=== PATIENT | male | born 1995 | race Caucasian/White ===

== ENCOUNTER 2018-02-03 12:46 | Inpatient (IN) | payer OTHER ==
[~2018-02-03] VITALS: Ht 185.4 cm; Wt 115.2 kg
[2018-02-03] VITALS (11 sets, daily range): BP systolic 98–155; BP diastolic 53–94
--- NOTE | ~2018-02-03 | H ---
[address] [address] HISTORY AND PHYSICAL Name: VLADISLAV BROWNING Room: [address]#: [id number] Admission: 02/03/18 Attend Phys: Quinn Elder MD Discharge: 02/04/18 Date of : [birth year] Report #: [id number] THIS REPORT FOR: //name// For History and Physical please refer to the electronic consultation note in the patient's medical record. By: 0913Medical Records Staff ALESHIA /BOB
[~2018-02-03 12:46] MED LIST: ACCUNEB SO1.25 MG/1 IH; AZITHROMYCIN 2250 MG PO; CIPRO500 MG PO; FLAGYL500 MG PO; IBUPROFEN 800800 M1 PO; PENICILLIN; PROAIR HFA8.5 GM IH; VENTOLIN HFA 1818 GM INH; VENTOLIN17 GM INH
[2018-02-03 13:17] LABS: ABSOLUTE EOSINOPHILS 0.1 thou/uL (0.0-0.7); ABSOLUTE LYMPHOCYTES 1.6 thou/uL (0.8-5.3); ABSOLUTE MONOCYTES 1.4 thou/uL (0.0-1.2); ABSOLUTE NEUTROPHILS 6.6 thou/uL (1.6-8.1); BASOPHILS 0.3 %; EOSINOPHILS 0.7 %; HEMATOCRIT 42.4 % (42.0-52.0); HEMOGLOBIN 14.5 gm/dL (14.0-18.0); LYMPHOCYTES 16.2 %; MCH 30.1 pg (26.0-34.0); MCHC 34.2 g/dL (28.0-37.0); MCV 87.8 fL (80.0-100.0); MONOCYTES 14.8 %; NUCLEATED RBCS 0 /100WBC; PLATELET COUNT* 237 thou/uL (150-400); RBC 4.82 mil/uL (4.50-6.00); RDW-CV 12.9 % (10.5-14.5); WBC 9.8 thou/uL (4.0-11.0)
[2018-02-03 13:24] LABS: CALCIUM 8.8 mg/dL (8.5-10.1)
[2018-02-03 13:27] LABS: POTASSIUM 2.9 mmol/L (3.5-5.1)
[2018-02-03 13:31] LABS: ALBUMIN 3.8 g/dL (3.4-5.0); TOTAL BILIRUBIN 0.4 mg/dL (<0.1-1.0); TOTAL PROTEIN 7.3 g/dL (6.4-8.2)
[2018-02-03 13:51] LABS: TROPONIN-I LEVEL 9.1 ng/mL (<0.06)
--- NOTE | 2018-02-03 13:54 | NUR ---
LAB CONTACTED FOR RE-DRAW FOR TROPONIN LEVEL PER DR. SAUCEDO'S ORDERS.
--- NOTE | 2018-02-03 13:54 | NUR ---
LAB CONTACTED FOR RE-DRAW
--- NOTE | 2018-02-03 14:03 | EKG ---
[place] [address] ELECTROCARDIOGRAM REPORT Name: VLADISLAV BROWNING Room: [facility]#: [id number] Admission: 02/03/18 Attend Phys: Discharge: Date of : [birth year] Report #: [id number] THIS REPORT FOR: //name// [facility] ED Test Date: 2018-02-03 Test Time: 12:51:27 Pat Name: VLADISLAV BROWNING Department: Room: Gender: M Sale Professional Digital Marketing: Chelle ALCOCER : 1995 Requested By: Dorys Stuart Order Number: [id number] : Atul Morrow Measurements Intervals [place] Rate: 90 P: 11 RI: 124 QRS: 23 QRSD: 97 T: 16 QT: 360 QTc: 441 Interpretive Statements Sinus rhythm Possible lateral infarct, old No previous ECG available for comparison Electronically Signed On 02-03-2018 14:03:26 CDT by Atul Morrow [email or web address] <ELECTRONICALLY SIGNED> By: Atul Morrow MD, [facility] 02/03/18 1403 1251 1251 Atul Morrow MD, FACC /EPI
--- NOTE | 2018-02-03 17:02 | 2DMMODE ---
[place] [address] 2 D/M-MODE ECHOCARDIOGRAM Name: VLADISLAV BROWNING Room: 170-3 ADM IN [place]#: [id number] Admission: 02/03/18 Attend Phys: Quinn Elder, Discharge: Date of : [birth year] Date of Service: 02/03/181701 Report #: [id number] THIS REPORT FOR: //name// APPROVED REPORT Study performed: 02/03/2018 14:41:47 EXAM: Comprehensive 2D, Doppler, and color-flow Echocardiogram Patient Location: In-Patient Room #: er Status: routine BSA: 2.37 HR: 90 bpm BP: 120/82 mmHg Rhythm: NSR Other Information Study Quality: Good Indications Elevated Troponin Chest Pain 2D Dimensions IVSd: 13.00 (7-11mm) LVOT Diam: 22.90 (18-24mm) LVDd: 50.24 mm PWd: 11.63 (7-11mm) Ascending Ao: 25.95 (22-36mm) LVDs: 34.33 (25-40mm) Aortic Root: 31.87 mm Volumes Left Atrial Volume (Systole) LA ESV Index: 24.20 mL/m2 Aortic Valve AoV Peak Madi.: 1.21 m/s AO Peak Gr.: 5.86 mmHg LVOT Max P.43 mmHg AO Mean Gr.: 3.37 mmHg LVOT Mean P.08 mmHg LVOT Max V: 1.05 m/s AO V2 VTI: 23.34 cm LVOT Mean V: 0.65 m/s KEVIN (VTI): 3.71 cm2 LVOT V1 VTI: 21.01 cm Mitral Valve E/A Ratio: 1.37 MV Decel. Time: 174.04 [place] [address] 2 D/M-MODE ECHOCARDIOGRAM Name: VLADISLAV BROWNING Room: [place] [address] ADM IN .R.#: [id number] Admission: 02/03/18 Attend Phys: Quinn Elder, Discharge: Date of : [birth year] Date of Service: 02/03/181701 Report #: [id number] MV E Max Madi.: 0.62 m/s MV PHT: 50.47 ms MVA (PHT): 4.36 cm2 TDI E/Lateral E': 3.10 E/Medial E': 3.10 Medial E' Madi.: 0.20 m/s Lateral E' Madi.: 0.20 m/s Pulmonary Valve PV Peak Madi.: 0.80 m/s PV Peak Gr.: 2.56 mmHg Tricuspid Valve RAP Estimate: 5.00 mmHg TR Peak Gr.: 16.76 mmHg RVSP: 22.00 mmHg PA Pressure: 22.00 mmHg Left Ventricle The left ventricle is normal size. There is normal LV segmental wall motion. There is normal left ventricular wall thickness. Left ventricular systolic function is normal. The left ventricular ejection fraction is within the normal range. LVEF is 50-55%. The left ventricular diastolic function is normal. Right Ventricle The right ventricle is normal size. The right ventricular systolic function is normal. Atria The left atrium size is normal. The right atrium size is normal. Aortic Valve The aortic valve is normal in structure. No aortic regurgitation is present. There is no aortic valvular stenosis. Mitral Valve The mitral valve is normal in structure. Trace mitral regurgitation. No evidence of mitral valve stenosis. Tricuspid Valve The tricuspid valve is normal in structure. Mild tricuspid regurgitation. No pulmonary hypertension. Pulmonic Valve The pulmonary valve is normal in structure. [place] [address] 2 D/M-MODE ECHOCARDIOGRAM Name: VLADISLAV BROWNING Room: [address] IN [facility]#: [id number] Admission: 02/03/18 Attend Phys: Quinn Elder, Discharge: Date of : [birth year] Date of Service: 02/03/18 1702 Report #: [id number] valvular regurgitation. Great Vessels The aortic root is normal in size. IVC is normal in size and collapses >50% with inspiration. Pericardium There is no pericardial effusion. <Conclusion> The left ventricle is normal size. There is normal left ventricular wall thickness. Left ventricular systolic function is normal. The left ventricular ejection fraction is within the normal range. LVEF is 50-55%. The left ventricular diastolic function is normal. The right ventricle is normal size. The left atrium size is normal. The aortic valve is normal in structure. The mitral valve is normal in structure. The tricuspid valve is normal in structure. IVC is normal in size and collapses >50% with inspiration. There is no pericardial effusion. There is normal LV segmental wall motion. <ELECTRONICALLY SIGNED> By: Atul Morrow MD, FACC 02/03/181701 01 01 Atul Morrow MD, FACC /INF
--- NOTE | 2018-02-04 03:39 | NUR ---
ASSUMED PT CARE AT 1930. NURSING ASSESSMENT COMPLETED AT START OF SHIFT. ASSISTANT MANAGER RETAIL IN PLACE, TRACING SINUS RHYTHM. HOURLY ROUNDING COMPLETED, CALL LIGHT WITHIN REACH. VOICED NO CONCERNS THIS SHIFT.
[2018-02-04 04:00] VITALS: BP 106/72
[2018-02-04 05:15] LABS: CALCIUM 8.7 mg/dL (8.5-10.1); CREATININE 0.8 mg/dL (0.6-1.3)
[2018-02-04 05:18] LABS: POTASSIUM 3.9 mmol/L (3.5-5.1)
[2018-02-04 08:10] VITALS: BP 115/72
--- NOTE | 2018-02-04 10:29 | NUR ---
RECEIVED REPORT FROM CEFERINO AND ASSUMED CARE OF PT @ 6849.PT IS A/O X4,VSS,TRACING SR ON THE MONITOR,LUNG SOUNDS ARE CLEAR.LAST BM WAS 02/02/18.IV PATENT AND SALINE LOCKED.PT IS CALM AND COOPERATIVE WITH NO C/O PAIN AT TIME OF ASSESSMENT.PT LEFT RESTING IN BED WITH CALL LIGHT AND FALL PRECAUTIONS IN PLACE. WILL CONTINUE TO MONITOR.
[2018-02-04 12:07] VITALS: BP 115/70
[2018-02-04] MEDS ORDERED: IBUPROFEN 800800 M1 PO (13:59)
[2018-02-04] MEDS ORDERED: COLCHICINE0.6 MG PO (13:59)
[2018-02-04] MEDS ORDERED: NORCO 10-325 T1 EACH PO (14:13)
[2018-02-04] MEDS ORDERED: NORCO 5-325 TA1 EACH PO (14:17)
[2018-02-04 14:25] VITALS: BP 115/70
--- NOTE | 2018-02-04 14:58 | NUR ---
PT OK FOR DISCHARGE.PAPERWORK COMPLETED AND GIVEN TO THE PT.SCRIPTS GIVEN WITH EDUCATION.IV REMOVED.HEART MONITOR REMOVED AND RETURNED TO THE NURSING STATION.ALL PERSONAL BELONGINGS PACKED AND TAKEN WITH THE PT.PT WHEELED OUT BY NURSING STAFF TO PERSONAL VEHICLE.EDUCATION GIVEN ON CARE AND RESTRICTIONS OF RIGHT RADIAL CATH SITE.PT COMMUNICATES UNDERSTANDING.
--- NOTE | 2018-02-04 17:56 | EKG ---
[place] [address] ELECTROCARDIOGRAM REPORT Name: KAMAR BROWNINGTiffanie Harris Room: [address] DIS IN M.R.#: [id number] Admission: 02/03/18 Attend Phys: Quinn Elder MD Discharge: 02/04/18 Date of : [birth year] Report #: [id number] THIS REPORT FOR: //name// [facility] ED Test Date: 2018-02-03 Test Time: 14:28:51 Pat Name: VLADISLAV BROWNING Department: Room: [address] Gender: M Repatcher: : 1995 Requested By: Quinn Elder Order Number: [id number] Luisito MD: Maycol Bustamante Measurements Intervals [place] Rate: 78 P: 11 [place]: 135 QRS: 15 QRSD: 88 T: 19 QT: 372 QTc: 424 Interpretive Statements Sinus rhythm ST elev, probable normal early repol pattern Compared to ECG 02/03/2018 12:51:27 no change Electronically Signed On 02-04-2018 17:56:15 CDT by Maycol Bustamante [email or web address] <ELECTRONICALLY SIGNED> By: Maycol Bustamante MD, [facility] 02/04/18 4161 1428 1428 Maycol Bustamante MD, [facility] /EPI
--- NOTE | 2018-02-04 19:22 | CARD ---
[address] [address] CARDIAC CATH REPORT Name: VLADISLAV BROWNING Room: [address] IN .R.#: [id number] Admission: 02/03/18 Attend Phys: Quinn Elder MD Discharge: 02/04/18 Date of : [birth year] Report #: [id number] THIS REPORT FOR: //name// APPROVED REPORT Study performed: 02/03/2018 16:36:29 Patient Details Patient Status: ED Room #: The patient is a 22 year-old male Event Personnel Quinn Elder Senior Production Manager, Rosalee Zamorano RN Retail Selling Floor Leader, Rach Aponte RTR Monitor, Elliott Najera (R) Scrub Procedures Performed Art Access - R radial artery Right and Left Heart Cath w/or w/o Coronarie RLHC Procedure Narrative The patient was brought electively to the Cardiac Catheterization Laboratory and was prepped and draped in a sterile manner. The right wrist was infiltrated with 2% Lidocaine subcutaneous anesthesia. A Slender Glidesheath sheath was inserted into the right radial artery. Coronary angiography was performed using coronary diagnostic catheters. The right coronary system was accessed and visualized with a Diagnostic 3DRC catheter. The left coronary system was accessed and visualized with a Vonore 4.0 6fr Diagnostic catheter. The left ventricle was accessed and visualized with a Diagnostic 6FR angled pigtail catheter. Left ventriculogram was performed in [place] projection. Hemostasis was obtained with manual pressure following sheath removal without any complications. The patient tolerated the procedure well and there were no complications associated with the procedure. Intraoperative Conscious Sedation Sedation start time: 17:30 Case end Time: 17:44 Fentanyl 25 mcg Versed 1 mg Fluoro Time: 4.7 minutes Dose: DAP 47726 cGycm2 769 mGy Contrast Type and Amount: Omnipaque 130 [place] [address] CARDIAC CATH REPORT Name: VLADISLAV BROWNING Room: [address] IN M.R.#: [id number] Admission: 02/03/18 Attend Phys: Quinn Elder MD Discharge: 02/04/18 Date of : [birth year] Report #: [id number] The patient's coronary anatomy is right dominant. Diagnostic Cath Left Main Normal LAD Normal Diagonal 1 Normal Diagonal 2 Normal Circumflex Normal OM1 Normal OM2 Normal OM3 Normal R PDA Normal RPLV Normal Left Ventriculography The left ventricle is normal in size with normal contractility. The left ventricular ejection fraction is estimated to be 55-60%. Hemodynamics The aortic pressure is 97/64 mmHg with a mean of 79 mmHg. The left ventricular pressure is 97/8 mmHg with a mean of mmHg. The left ventricular end diastolic pressure is 14 mmHg. Pullback from the left ventricle to the aorta revealed no gradient across the aortic valve. Conclusion 1. Normal coronary arteries. 2. Normal left ventricular systolic function. 3. Normal left ventricular end-diastolic pressure. Recommendations 1. Continue current medical management. <ELECTRONICALLY SIGNED> By: Quinn Elder MD, FACC 02/04/181920 20 20Micclinton Elder MD, FACC /INF
--- NOTE | 2018-02-07 12:42 | NUR ---
Spoke with the patient by phone, states he is doing well, denies chest pain, was able to get all his medications, has a good appetite, knows when he needs to see the Dr. in follow up, he has no questions or concerns at this time.
--- NOTE | 2018-02-15 19:54 | D ---
[facility] [address] [place] [address] DISCHARGE SUMMARY Name: VLADISLAV BROWNING Room: [address] IN M.R.#: [id number] Admission: 02/03/18 Attend Phys: Quinn Elder MD Discharge: 02/04/18 Date of : [birth year] Report #: [id number] THIS REPORT FOR: //name// CC: [facility] physician/PCP Quinn Elder DATE OF SERVICE: 02/04/2018 DISCHARGE DIAGNOSIS: Acute pericarditis. HOSPITAL COURSE: The patient was admitted to the hospital with complaints of chest pain. He was noted to have ST elevation on EKG as well as elevated troponins. A cardiac catheterization was performed that showed no evidence of coronary artery disease. He has normal left ventricular systolic function. An echocardiogram showed no evidence of effusion. The patient was started on nonsteroidal anti-inflammatory agents as well as colchicine. The hospital course was unremarkable. He was discharged to home in stable condition. DISCHARGE MEDICATIONS: Included ibuprofen 800 mg p.o. t.i.d. and colchicine 0.6 mg p.o. b.i.d. DISPOSITION: The patient to follow up with nurse practitioner in 1-2 weeks and myself in 1-2 months. <ELECTRONICALLY SIGNED> By: Quinn Elder MD, [facility] 02/15/18 1954 1821 1922Countyline Ana Elder MD, FACC /nt
== END 2018-02-04 15:23 | disposition home or self-care (01) | DRG 287 ==
LOC: M.ERS 12:46 → M.TBA-ER 15:49 → M.ERS 15:49 → M.2W 16:19 → M.TBA-ER 16:19 → M.2W 18:17
PROVIDERS: Nurse Practitioner Family; ADMIT Internal Medicine Cardiovascular Disease
PROC: B2151ZZ Fluoroscopy of Left Heart using Low Osmolar Contrast (ICD-10-PCS; principal; 2018-02-03)
PROC: B2111ZZ Fluoroscopy of Multiple Coronary Arteries using Low Osmolar Contrast (ICD-10-PCS; principal; 2018-02-03)
PROC: 4A023N8 Measurement of Cardiac Sampling and Pressure, Bilateral, Percutaneous Approach (ICD-10-PCS; principal; 2018-02-03)
DX: I30.9 Acute pericarditis, unspecified (principal); J45.909 Unspecified asthma, uncomplicated; E66.9 Obesity, unspecified; Z68.33 Body mass index [BMI] 33.0-33.9, adult; Z28.21 Immunization not carried out because of patient refusal; Z79.899 Other long term (current) drug therapy

== ENCOUNTER 2018-02-12 11:48 | Emergency (ER) | payer OTHER ==
[~2018-02-12] VITALS: Ht 188 cm; Wt 113.4 kg
[~2018-02-12 11:48] MED LIST changes: +COLCHICINE0.6 MG PO; +NORCO 10-325 T1 EACH PO; +NORCO 5-325 TA1 EACH PO
[2018-02-12] MEDS ORDERED: PENICILLIN V P500 MG PO (12:00)
[2018-02-12 12:26] LABS: ABSOLUTE BASOPHILS 0.1 thou/uL (0.0-0.2); ABSOLUTE EOSINOPHILS 0.1 thou/uL (0.0-0.7); ABSOLUTE LYMPHOCYTES 2.5 thou/uL (0.8-5.3); ABSOLUTE MONOCYTES 0.7 thou/uL (0.0-1.2); ABSOLUTE NEUTROPHILS 4.1 thou/uL (1.6-8.1); BASOPHILS 0.9 %; EOSINOPHILS 1.1 %; HEMATOCRIT 46.6 % (42.0-52.0); HEMOGLOBIN 15.7 gm/dL (14.0-18.0); LYMPHOCYTES 33.9 %; MCH 29.7 pg (26.0-34.0); MCHC 33.7 g/dL (28.0-37.0); MCV 88.3 fL (80.0-100.0); MONOCYTES 9.5 %; MPV 7.8 fl. (7.2-11.1); NUCLEATED RBCS 0 /100WBC; PLATELET COUNT* 370 thou/uL (150-400); POLYS 54.6 %; RBC 5.27 mil/uL (4.50-6.00); RDW-CV 13.1 % (10.5-14.5); WBC 7.5 thou/uL (4.0-11.0)
[2018-02-12 12:36] LABS: CALCIUM 9.2 mg/dL (8.5-10.1); POTASSIUM 4.3 mmol/L (3.5-5.1)
[2018-02-12 12:38] LABS: APTT 30.8 Seconds (25.0-31.3); PROTIME 10.5 Seconds (9.20-11.50)
[2018-02-12 12:40] LABS: ALBUMIN 4.3 g/dL (3.4-5.0); TOTAL BILIRUBIN 0.4 mg/dL (<0.1-1.0); TOTAL PROTEIN 7.7 g/dL (6.4-8.2)
[2018-02-12 13:07] LABS: URINE BILIRUBIN NEGATIVE (Negative); URINE BLOOD NEGATIVE (Negative); URINE CLARITY CLEAR; URINE COLOR YELLOW; URINE GLUCOSE-RANDOM NEGATIVE (Negative); URINE KETONES NEGATIVE (Negative); URINE LEUKOCYTES NEGATIVE (Negative); URINE NITRITE NEGATIVE (Negative); URINE PROTEIN NEGATIVE (Negative); URINE UROBILINOGEN 0.2 E.U./dl (0.2-1.0)
[2018-02-12] MEDS ORDERED: CLINDAMYCIN HC150 MG PO (13:45)
[2018-02-12 13:58] VITALS: BP 115/76
== END 2018-02-12 14:00 | disposition home or self-care (01) ==
LOC: M.ERS 11:48
PROVIDERS: Emergency Medicine Emergency Medical Services
DX: R21 Rash and other nonspecific skin eruption (principal); T50.995A Adverse effect of other drugs, medicaments and biological substances, initial encounter; J45.909 Unspecified asthma, uncomplicated; Z90.49 Acquired absence of other specified parts of digestive tract; Z95.5 Presence of coronary angioplasty implant and graft; Y92.89 Other specified places as the place of occurrence of the external cause

== ENCOUNTER 2020-06-06 13:17 | Emergency (ER) | payer OTHER ==
[~2020-06-06] VITALS: Ht 188 cm; Wt 97.5 kg
[~2020-06-06 13:17] MED LIST changes: +CLINDAMYCIN HC150 MG PO; +PENICILLIN V P500 MG PO
[2020-06-06 13:44] LABS: ABSOLUTE LYMPHOCYTES 1.7 thou/uL (0.8-5.3); ABSOLUTE MONOCYTES 0.7 thou/uL (0.0-1.2); BASOPHILS 0.6 %; EOSINOPHILS 0.2 %; HEMATOCRIT 43.5 % (42.0-52.0); LYMPHOCYTES 19.9 %; MCH 30.9 pg (26.0-34.0); MCHC 34.6 g/dL (28.0-37.0); MCV 89.3 fL (80.0-100.0); MONOCYTES 8.3 %; MPV 7.3 fl. (7.2-11.1); NUCLEATED RBCS 0 /100WBC; PLATELET COUNT* 334 thou/uL (150-400); RBC 4.87 mil/uL (4.50-6.00); RDW-CV 12.9 % (10.5-14.5); WBC 8.5 thou/uL (4.0-11.0)
[2020-06-06 13:55] LABS: CALCIUM 9.1 mg/dL (8.5-10.1); CREATININE 0.9 mg/dL (0.6-1.3); POTASSIUM 3.8 mmol/L (3.5-5.1)
[2020-06-06 13:59] LABS: ALBUMIN 4.6 g/dL (3.4-5.0); TOTAL BILIRUBIN 0.7 mg/dL (<0.1-1.0); TOTAL PROTEIN 7.5 g/dL (6.4-8.2)
[2020-06-06 14:51] VITALS: BP 142/99
--- NOTE | 2020-06-06 17:40 | EKG ---
[place] [address] ELECTROCARDIOGRAM REPORT Name: BROWNINGVLADISLAV R Room: [facility]#: [id number] Admission: 06/06/20 Attend Phys: Discharge: 06/06/20 Date of : [birth year] Date of Service: 06/06/20 1326 Report #: [id number] THIS REPORT FOR: //name// [facility] ED Test Date: 2020-06-06 Test Time: 13:26:55 Pat Name: VLADISLAV BROWNING Department: Room: Gender: Application Integration Specialist: [facility] : 1995 Requested By: Galen Aguirre Order Number: [id number] MD: Quinn Elder Measurements Intervals [place] Rate: 103 P: 56 [place]: 150 QRS: 45 QRSD: 97 T: 48 QT: 338 QTc: 443 Interpretive Statements Sinus tachycardia Compared to ECG 02/03/2018 14:28:51 Sinus rhythm no longer present ST (T wave) deviation no longer present Electronically Signed On 06-06-2020 17:39:52 PRINCIPAL TECHNICAL ARCHITECT by Quinn Elder [email or web address] <ELECTRONICALLY SIGNED> By: Quinn Elder MD, FACC 06/06/20 1739 1326 1326 Quinn Elder MD, [facility] /EPI
== END 2020-06-06 14:52 | disposition home or self-care (01) ==
LOC: M.ERS 13:17
PROVIDERS: Family Medicine
DX: R07.89 Other chest pain (principal); J45.909 Unspecified asthma, uncomplicated; Z90.49 Acquired absence of other specified parts of digestive tract; Z88.1 Allergy status to other antibiotic agents; Z88.0 Allergy status to penicillin